=== PATIENT | female | born 1950 | race Caucasian/White ===

== ENCOUNTER → 2016-08-01 12:52 | Outpatient (CLI) | payer BC ==
[2012-01-15 07:01] VITALS: BMI 37.5
== END | disposition home or self-care (01) ==
LOC: D.CT 12:52
DX: R19.00 Intra-abdominal and pelvic swelling, mass and lump, unspecified site (principal)

== ENCOUNTER 2017-08-05 15:45 | Outpatient (CLI) | payer MEDICARE, OTHER ==
[2012-01-15 07:01] VITALS: BMI 37.5
== END 2017-08-05 15:46 | disposition home or self-care (01) ==
LOC: D.MAMMO 15:45
DX: N64.4 Mastodynia (principal)

== ENCOUNTER 2017-12-14 11:03 | Emergency (ER) | payer MEDICARE, OTHER ==
[~2017-12-14] VITALS: Ht 162.6 cm; Wt 84.1 kg
[2017-12-14 11:24] VITALS: Ht 162.6 cm; Wt 84.1 kg
[2017-12-14] MEDS ORDERED: ZOCOR20 MG PO (11:27)
[2017-12-14] MEDS ORDERED: CYMBALTA20 MG PO (11:27)
[2017-12-14] MEDS ORDERED: HYDROCODONE-APA1 TAB PO (11:27)
[2017-12-14] MEDS ORDERED: MOBIC7.5 MG PO (11:28)
[2017-12-14] MEDS ORDERED: MULTIPLE VITAMI1 TA1 PO (11:28)
[2017-12-14] MEDS ORDERED: VITAMIN D31000 UNI2 PO (11:28)
[2017-12-14] MEDS ORDERED: VOLTAREN75 MG PO (13:19)
[2017-12-14 13:29] VITALS: BP 114/82
== END 2017-12-14 13:30 | disposition home or self-care (01) ==
LOC: D.ER 11:03
DX: M25.551 Pain in right hip (principal); M17.11 Unilateral primary osteoarthritis, right knee; K21.9 Gastro-esophageal reflux disease without esophagitis

== ENCOUNTER → 2018-04-15 12:52 | Outpatient (CLI) | payer MEDICARE, OTHER ==
[2017-12-14 11:24] VITALS: BMI 31.8
[~2018-04-15 12:52] MED LIST: CYMBALTA20 MG PO; HYDROCODONE-APA1 TAB PO; MOBIC7.5 MG PO; MULTIPLE VITAMI1 TA1 PO; VITAMIN D31000 UNI2 PO; VOLTAREN75 MG PO; ZOCOR20 MG PO
== END | disposition home or self-care (01) ==
LOC: D.CT 12:52
DX: R07.81 Pleurodynia (principal)

== ENCOUNTER 2019-02-08 07:53 | Day surgery (SDC) | payer MEDICARE, OTHER ==
[2019-02-05 09:30] LABS: HEMATOCRIT 42.3 % (36.0-48.0); HEMOGLOBIN 14.3 g/dL (12-16); MCH 28.9 pg (26.0-34.0); MCHC 33.8 g/dL (31.0-37.0); MCV 85.6 fL (80.0-100.0); MEAN PLATELET VOLUME 8.8 fL (7.4-10.4); RBC 4.94 10x6/uL (4.00-5.40); RDW 13.7 % (11.5-14.5); WBC 6.7 10x3/uL (4.8-10.8)
[~2019-02-08] VITALS: Ht 165.1 cm; Wt 85.7 kg
[~2019-02-08 07:53] MED LIST changes: +AMBIEN5 MG PO; +BUPROPION XL300 MG PO; +DOXYCYCLINE HY100 M2 PO; +OMEPRAZOLE40 MG PO
[2019-02-08 08:30] VITALS: BP 122/81; Ht 165.1 cm; Wt 85.7 kg
--- NOTE | 2019-02-08 12:34 | NUR ---
MEETS ANESTHESIA DISCHARGE CRITERIA
[2019-02-08] MEDS ORDERED: HYDROCODON-ACE1 EA10 PO (13:29)
--- NOTE | 2019-02-08 14:18 | NUR ---
1415 DC INSTS GIVEN VOICED UNDERSTANDING RX GIVEN RELEASED IN WC WITH ESCORT.=
--- NOTE | 2019-02-22 08:52 | OP ---
PATIENT NAME: RODOLFO JACKSON MEDICAL RECORD: [id number] :54 LOCATION:D.OPS ADMISSION DATE: SURGEON: LILLIAN ARMENTA MD DATE OF OPERATION: 02/08/2019 PREOPERATIVE DIAGNOSES: 1. Lateral meniscus tear. 2. Tibial plateau fracture, nondisplaced. PREOPERATIVE DIAGNOSES: 1. Lateral meniscus tear. 2. Tibial plateau fracture, nondisplaced. PROCEDURE: Arthroscopic partial lateral meniscectomy. SURGEON: Lillian Armenta MD ANESTHESIA: General. INTRAOPERATIVE COMPLICATIONS: None. SUMMARY OF PATHOLOGIC FINDINGS: Consistent with the preoperative diagnosis, the patient did indeed have a radial beak type tear of the lateral meniscus. OPERATIVE SUMMARY IN DETAIL: After obtaining the appropriate preoperative orthopedic surgery consent as well as anesthetic consultation, evaluation and clearance, the patient was brought to the operating room and placed on the operating table in supine position. After general laryngeal mask airway was administered, tourniquet was placed on the proximal aspect of the left lower extremity. Left lower extremity was then prepped and draped in routine sterile fashion. The leg was elevated and exsanguinated, tourniquet was inflated to 350 mmHg. Routine inferolateral portal was established followed by superomedial portal and inferomedial portal. Diagnostic arthroscopy did show the above-mentioned findings. The area of the fracture did not show any evidence of displacement or chondral fissuring. Very gently, arthroscopic resector along with a meniscotome utilized to debride the posterior lateral aspect of the area of torn meniscus. The medial compartment and patellofemoral compartment were relatively pristine. The knee was insufflated with 30 cc of 0.25% Marcaine with epinephrine along with 80 mg of Depo-Medrol. Arthroscopy portals were closed in routine interrupted fashion using 4-0 Prolene. Sterile dressings were applied. The patient was awakened and taken to recovery in stable condition. All final needle and sponge counts were correct. TRANSINT:[id number] Voice Confirmation ID: [id number] DOCUMENT ID: [id number] LILLIAN ARMENTA MD at 0852 CC: [id number] DICTATION DATE: 02/18/19 1232 OUTDOOR ILLUMINATING ENGINEER: 02/18/19 1252 DEP [facility] [place] 02/08/[address] [id number]
== END 2019-02-08 14:20 | disposition home or self-care (01) ==
LOC: D.OPS 07:53 → D.PAN 10:15 → D.OPS 12:25 → D.PAN 12:25 → D.OPS 14:00 → D.PAN 14:00 → D.OPS 14:20
PROVIDERS: Anesthesiology; ATTEND Orthopaedic Surgery
DX: S83.242A Other tear of medial meniscus, current injury, left knee, initial encounter (principal); X58.XXXA Exposure to other specified factors, initial encounter; S82.145A Nondisplaced bicondylar fracture of left tibia, initial encounter for closed fracture

== ENCOUNTER → 2019-05-18 09:27 | Outpatient (CLI) | payer MEDICARE, OTHER ==
[2019-02-08 08:30] VITALS: BMI 31.5
[~2019-05-18 09:27] MED LIST changes: +HYDROCODON-ACE1 EA10 PO
== END | disposition home or self-care (01) ==
LOC: D.MRI 09:27
PROVIDERS: ATTEND Clinical Nurse Specialist Family Health
DX: M25.562 Pain in left knee (principal)